=== PATIENT | male | born 1955 | race Two or more races ===

== ENCOUNTER → 2020-06-08 | Emergency (ER) | payer OTHER ==
[~2020-06-08] VITALS: Ht 172.7 cm; Wt 77.1 kg
[~2020-06-08] MED LIST: METFORMIN HCL500 M1 ORAL; Vancomycin 1 GM in NS 275 ML IVPB ONE
--- NOTE | 2020-06-08 11:16 | NUR ---
ED Nurse Note: Pt walked into ED for R foot diabetic ulcer digit 2. Pt injured himself 2 weeks ago on toe. There is necrosis present, no drainage. Pt pain is 4/10. He is alert and orientedx4, ambulatory. Pt has been seen by NATHANIEL.
[2020-06-08 11:55] LABS: BASOPHILS % (AUTO) 0.4 % (0.0-2.0); EOSINOPHILS % (AUTO) 1.3 % (0.0-3.0); HEMATOCRIT 45.6 % (42.0-52.0); HEMOGLOBIN 15.4 G/DL (14.2-18.0); LYMPHOCYTES % (AUTO) 9.7 % (20.0-45.0); MEAN CORPUSCULAR VOLUME 92 FL (80-99); NEUTROPHILS % (AUTO) 80.5 % (45.0-75.0); PLATELET COUNT 180 K/UL (150-450); RED BLOOD COUNT 4.93 M/UL (4.70-6.10); RED CELL DISTRIBUTION WIDTH 11.6 % (11.6-14.8); WHITE BLOOD COUNT 15.3 K/UL (4.8-10.8)
--- NOTE | 2020-06-08 12:00 | Diagnostic Imaging Report ---
EXAM: XR Chest, 1 View CLINICAL HISTORY: PAIN TECHNIQUE: Frontal view of the chest. COMPARISON: No relevant prior studies available. FINDINGS: Lungs: Unremarkable. The lungs appear clear. No focal consolidation. Pleural space: Unremarkable. The costophrenic angles are sharp. No visible pneumothorax. Heart: Unremarkable. No cardiomegaly. Mediastinum: Unremarkable. Bones/joints: Unremarkable. Vasculature: Mild atherosclerotic calcifications are noted within the aortic arch. IMPRESSION: No acute radiographic findings.
--- NOTE | 2020-06-08 12:03 | Diagnostic Imaging Report ---
EXAM: XR Right Foot, 2 Views CLINICAL HISTORY: PAIN TECHNIQUE: Frontal and lateral views of the right foot. COMPARISON: No relevant prior studies available. FINDINGS: Bones/joints: Unremarkable. No visible displaced fracture. No dislocation. No osseous erosions. Visualized joint spaces appear unremarkable. Soft tissues: Soft tissue swelling overlying the forefoot. No radiodense foreign bodies. No soft tissue gas lucencies. Vasculature: Atherosclerotic calcifications throughout the foot. IMPRESSION: Soft tissue swelling overlying the forefoot. No visible fracture or dislocation. No radiodense foreign bodies.
[2020-06-08 12:04] LABS: ANION GAP 9 mmol/L (5-15); BLOOD UREA NITROGEN 17 mg/dL (7-18); CALCIUM 8.5 MG/DL (8.5-10.1); CARBON DIOXIDE 25 MMOL/L (21-32); CHLORIDE 103 MMOL/L (98-107); CREATININE 0.8 MG/DL (0.55-1.30); POTASSIUM 3.7 MMOL/L (3.5-5.1); SODIUM 137 MMOL/L (136-145)
[2020-06-08 12:08] LABS: ALANINE AMINOTRANSFERASE 25 U/L (12-78); ALBUMIN 3.5 G/DL (3.4-5.0); ALBUMIN/GLOBULIN RATIO 0.9 (1.0-2.7); ALKALINE PHOSPHATASE 105 U/L (46-116); ASPARTATE AMINO TRANSFERASE 17 U/L (15-37); CREATINE KINASE 154 U/L (26-308)
--- NOTE | 2020-06-08 12:10 | Emergency Room Report ---
History of Present Illness General Chief Complaint: Lower Extremity Injury Source: Patient Present Illness HPI Patient is a 64-year-old male past medical history of diabetes and hypertension who presents to the ER complaining of right foot infection. Patient states that he stubbed his toe a week ago and that his toenail fell off. He states that for the past 3 to 4 days he has noticed some infection 3 to 4 days ago. He denies any fever or chills. He denies any nausea or vomiting. He states that he did not take any medications for this yet. He states that his pain is pretty minimal unless he is walking with shoes. Allergies: Coded Allergies: PENICILLINS (Verified Allergy, Unknown, 06/08/20) COVID-19 Screening Contact w/high risk pt: No Experienced COVID-19 symptoms?: No COVID-19 Testing performed SHADE MAKER: No Patient History Reviewed Nursing Documentation: PMH: Agreed; PSxH: Agreed Nursing Documentation-PMH Past Medical History: No History, Except For Hx Diabetes: Yes Review of Systems All Other Systems: negative except mentioned in HPI Physical Exam Vital Signs Date Time Temp Pulse Resp B/P (MAP) Pulse Ox O2 Delivery O2 Flow Rate FiO2 06/08/20 11:05 97.0 74 17 141/79 (99) 99 Room Air Sp02 EP Interpretation: reviewed, normal General Appearance: no apparent distress, alert, GCS 15, non-toxic Head: normocephalic, atraumatic Eyes: bilateral eye normal inspection, bilateral eye PERRL ENT: hearing grossly normal, normal pharynx, no angioedema, normal voice Neck: full range of motion, supple/symm/no masses Respiratory: chest non-tender, lungs clear, normal breath sounds, speaking full sentences Cardiovascular #1: regular rate, rhythm, no edema Gastrointestinal: normal bowel sounds, non tender, soft, non-distended, no guarding, no rebound Rectal: deferred Musculoskeletal: other - Right second digit missing toenail with gangrene and surrounding cellulitis tracking up the foot foul-smelling with scant discharge 2+ pedal pulse warm extremity Neurologic: rug sizer III-XII nml as tested, oriented x3 Psychiatric: no suicidal/homicidal ideation Lymphatic: no adenopathy Medical Decision Making Diagnostic Impression: Primary Impression: Diabetic foot infection Additional Impressions: Gangrene Cellulitis Leukocytosis ER Course Blood cultures have been sent. Patient has white count of 15,000. Patient started on vancomycin and Levaquin for MRSA and Pseudomonas coverage. Patient's vital signs are stable. Patient's labs otherwise demonstrate no significant acute abnormalities. Patient will be transferred for further treatment and evaluation. Laboratory Tests Test 06/08/20 11:25 White Blood Count 15.3 K/UL (4.8-10.8) H Red Blood Count 4.93 M/UL (4.70-6.10) Hemoglobin 15.4 G/DL (14.2-18.0) Hematocrit 45.6 % (42.0-52.0) Mean Corpuscular Volume 92 FL (80-99) Mean Corpuscular Hemoglobin 31.2 PG (27.0-31.0) H Mean Corpuscular Hemoglobin Concent 33.8 G/DL (32.0-36.0) Red Cell Distribution Width 11.6 % (11.6-14.8) Platelet Count 180 K/UL (150-450) Mean Platelet Volume 8.9 FL (6.5-10.1) Neutrophils (%) (Auto) 80.5 % (45.0-75.0) H Lymphocytes (%) (Auto) 9.7 % (20.0-45.0) L Monocytes (%) (Auto) 8.0 % (1.0-10.0) Eosinophils (%) (Auto) 1.3 % (0.0-3.0) Basophils (%) (Auto) 0.4 % (0.0-2.0) Erythrocyte Sedimentation Rate Pending Prothrombin Time 11.0 SEC (9.30-11.50) Prothrombin Time INR 1.0 (0.9-1.1) Activated Partial Thromboplast Time 31 SEC (23-33) Sodium Level 137 MMOL/L (136-145) Potassium Level 3.7 MMOL/L (3.5-5.1) Chloride Level 103 MMOL/L (98-107) Carbon Dioxide Level 25 MMOL/L (21-32) Anion Gap 9 mmol/L (5-15) Blood Urea Nitrogen 17 mg/dL (7-18) Creatinine 0.8 MG/DL (0.55-1.30) Estimated Glomerular Filtration Rate > 60 mL/min (>60) Glucose Level 182 MG/DL (74-106) H Lactic Acid Level 1.20 mmol/L (0.4-2.0) Calcium Level 8.5 MG/DL (8.5-10.1) Magnesium Level 2.2 MG/DL (1.8-2.4) Total Bilirubin 1.0 MG/DL (0.2-1.0) Aspartate Amino Transferase (AST) 17 U/L (15-37) Alanine Aminotransferase (ALT) 25 U/L (12-78) Alkaline Phosphatase 105 U/L (46-116) Total Creatine Kinase 154 U/L (26-308) C-Reactive Protein, Quantitative 8.5 mg/dL (0.00-0.90) H Total Protein 7.5 G/DL (6.4-8.2) Albumin 3.5 G/DL (3.4-5.0) Globulin 4.0 g/dL Albumin/Globulin Ratio 0.9 (1.0-2.7) L EKG Diagnostic Results Troponin ordered: No - EKG ordered for sepsis EKG Time: 11:55 EP Interpretation: Linda Jaramillo MD Rate: normal Rhythm: NSR - [address] Segments: no acute changes ASA given to the pt in ED: No Chest X-Ray Diagnostic Results Chest X-Ray Diagnostic Results : Chest X-Ray Ordered: Yes # of Views/Limited/Complete: 1 View Indication: Other - Sepsis EP Interpretation: Yes Interpretation: no consolidation, no effusion, no pneumothorax Impression: No acute disease Electronically Signed by: Linda Jaramillo MD Other X-Ray Diagnostic Results Other X-Ray Diagnostic Results : X-Ray ordered: Right foot # of Views/Limited Vs Complete: 2 View Indication: Pain EP Interpretation: Yes Interpretation: no dislocation, no fractures, other - Soft tissue swelling overlying the forefoot Impression: Other - Soft tissue swelling Electronically Signed by: Linda Jaramillo MD Last Vital Signs Date Time Temp Pulse Resp B/P (MAP) Pulse Ox O2 Delivery O2 Flow Rate FiO2 06/08/20 11:05 97.0 74 17 141/79 (99) 99 Room Air Disposition: ADMITTED INPATIENT - [facility] Consult: Discussed with Dr. Amato who will be accepting the transfer Referrals: [facility]ERR[facility] (PCP) Additional Instructions: Please note that this report is being documented using [employer] technology. This can lead to erroneous entry secondary to incorrect interpretation by the dictating instrument. Linda Jaramillo M.D. Jun 08, 2020 12:10
--- NOTE | 2020-06-08 13:39 | NUR ---
ED Nurse Note: Report given to Elier ROBERTSON at [facility].
[2020-06-08 13:46] VITALS: BP 137/77
== END | disposition short-term general hospital (02) ==
LOC: EMR 11:11
DX: E11.628 Type 2 diabetes mellitus with other skin complications (principal); I96 Gangrene, not elsewhere classified; L03.031 Cellulitis of right toe; D72.829 Elevated white blood cell count, unspecified
CPT/HCPCS: 71045; 73630; 80053; 82550; 83605; 83735; 85025; 85610; 85651; 85730; 86140; 87040; 93005; 96365; 96368; J1956; J3370; J7030; J7050; Z7502; 99284